=== PATIENT | female | born 1970 | race Caucasian/White ===

== ENCOUNTER 2019-06-03 14:41 | Emergency (ER) | payer MEDICAID ==
[~2019-06-03] VITALS: Ht 157.5 cm; Wt 61.4 kg
[2019-06-03 14:47] VITALS: Ht 157.5 cm; Wt 61.4 kg
[2019-06-03 15:12] VITALS: BP 156/74; PULSE 68; RESP 20
--- NOTE | 2019-06-03 15:12 | ERD ---
ER Documentation Chief Complaint Chief Complaint " my heart is raising" ; mid chest pain HPI Patient is a 48-year-old female with no medical problems who presents for palpitations. The patient was sent by her primary doctor for an EKG. The patient says "my heart goes fast". She said that she has felt fast heart rate while doing [employer] running over the past 1 week. She is taking [employer] for pre-workout. The patient has no complaints at this point while she is at rest. ROS All systems reviewed and are negative except as per history of present illness. Medications Home Meds No Active Prescriptions or Reported Meds Allergies Allergies: Coded Allergies: No Known Allergy (Unverified , 02/25/14) PMhx/Soc History of Surgery: Yes (cholecystectomy) Hx Alcohol Use: Yes Hx Substance Use: No Hx Tobacco Use: No FmHx Family History: No diabetes Physical Exam Vitals Vital Signs Date Temp Pulse Resp B/P (MAP) Pulse Ox O2 O2 Flow FiO2 Time Delivery Rate 06/03/19 99.0 68 20 156/74 98 15:12 (101) 06/03/19 99.0 74 20 127/66 98 14:47 (86) Physical Exam Const: No acute distress Head: Atraumatic Eyes: Normal Conjunctiva ENT: Normal External Ears, Nose and Mouth. Neck: Full range of motion. No meningismus. Resp: Clear to auscultation bilaterally Cardio: Regular rate and rhythm, no murmurs Abd: Soft, non tender, non distended. Normal bowel sounds Skin: No petechiae or rashes Back: No midline or flank tenderness Ext: No cyanosis, or edema Neur: Awake and alert Psych: Normal Mood and Affect Procedures/MDM EKG read by me: Rate/Rhythm: Regular rate and rhythm at a rate of 66 Intervals: Normal Impression: No evidence of ischemia or arrhythmia Patient is a well-appearing 48-year-old female in no distress. She presents for feelings of palpitations while working out. EKG does not show any signs of ischemia or arrhythmia at this time. Heart rate is normal at 66. The patient will be discharged. She was instructed to stop taking supplements prior to working out. She will need speak with her primary doctor before she can go back to workout regimen. She should follow-up within 1 week. She can return for any worsening symptoms. Departure Diagnosis: Primary Impression: Palpitations Condition: Fair Patient Instructions: Palpitations Referrals: Dr. Kristan Ko Additional Instructions: Llame al doctor nombrado abajo (Referral Sources) MAANA y karyna kristy CARLITO PARA D ENTRO DE KRISTY SEMANA. Dgale a la secretaria que nosotros le instruimos hacer esta carlito.Avise o llame si gregory condicin se empeora antes de la carlito. KRISTAN MORALES MD Jun 03, 2019 15:12
== END 2019-06-03 15:27 | disposition home or self-care (01) ==
LOC: E/R 14:41
DX: R00.2 Palpitations (principal)
CPT/HCPCS: 93005; Z7502